=== PATIENT | male | born 1995 | race African-American/Black ===

== ENCOUNTER 2020-09-13 14:36 | Emergency (ER) | payer OTHER ==
--- NOTE | 2020-09-13 17:52 | XR ---
EXAMINATION TYPE: XR chest 2V DATE OF EXAM: 09/13/2020 COMPARISON: NONE HISTORY: Fever and cough TECHNIQUE: 2 views FINDINGS: Heart and mediastinum are normal. There is probably some mild infiltrate in the periphery o f the left midlung. Right lung is clear. There are no hilar masses. There is no pleural effusion. Bon y thorax is intact. IMPRESSION: There is probably small area of pneumonia in the lateral aspect of the left upper lobe.
--- NOTE | 2020-09-13 18:48 | ED ---
Fever HPI - General Chief Complaint: Fever Stated Complaint: Fever Time Seen by Provider: 09/13/20 18:00 Source: patient, RN notes reviewed Mode of arrival: ambulatory Limitations: no limitations - History of Present Illness Initial Comments: This is a 25-year-old male with a benign past history who states he had the onset about 3 or 4 days ago of headache which progressed into the fever that has gone progressively higher over last several days. Appendix is 103. He's had chills along with it. He had a cough slight amount of shortness of breath pe rhaps. No nausea no vomiting no loss of smell or taste. No other complaints or modifying factors at this time. He has been exposed to Amanda Du MD Complaint: fever, malaise - Related Data Home Medications Medication Instructions Recorded Confirmed Ascorbic Acid [Vitamin C] 500 mg PO DAILY 09/13/20 09/13/20 Cholecalciferol [Vitamin D3 (25 25 mcg PO DAILY 09/13/20 09/13/20 Mcg = 1000 Iu)] Levothyroxine Sodium [Synthroid] 25 mcg PO DAILY 09/13/20 09/13/20 Vitamin A 8,000 unit PO DAILY 09/13/20 09/13/20 Vitamin B Complex 1 cap PO DAILY 09/13/20 09/13/20 Zinc 50 mg PO BID 09/13/20 09/13/20 Allergies Allergy/AdvReac Type Severity Reaction Status Date / Time Penicillins Allergy Unknown Verified 09/13/20 18:48 Childhood Review of Systems ROS Statement: Those systems with pertinent positive or pertinent negative responses have been documented in the HPI. ROS Other: All systems not noted in ROS Statement are negative. Past Medical History Past Medical History: Thyroid Disorder History of Any Multi-Drug Resistant Organisms: None Reported Past Surgical History: No Surgical Hx Reported Past Psychological History: No Psychological Hx Reported Smoking Status: Never smoker Past Alcohol Use History: None Reported Past Drug Use History: None Reported General Exam - General Exam Comments Initial Comments: This is a well-developed well-nourished awake alert oriented times 3 male Limitations: no limitations General appearance: alert, in no apparent distress Head exam: Present: atraumatic, normocephalic, normal inspection Eye exam: Present: normal appearance, PERRL, EOMI. Absent: scleral icterus, conjunctival injection, periorbital swelling ENT exam: Present: normal exam, mucous membranes moist Neck exam: Present: normal inspection. Absent: tenderness, meningismus, lymphadenopathy Respiratory exam: Present: decreased breath sounds. Absent: respiratory distress, wheezes, rales, rhonchi, stridor Cardiovascular Exam: Present: regular rate, normal rhythm, normal heart sounds. Absent: systolic murmur, diastolic murmur, rubs, gallop, clicks GI/Abdominal exam: Present: soft, normal bowel sounds. Absent: distended, tenderness, guarding, rebound, rigid Extremities exam: Present: normal inspection, full ROM, normal capillary refill. Absent: tenderness, pedal edema, joint swelling, calf tenderness Back exam: Present: normal inspection Neurological exam: Present: alert, oriented X3, CN II-XII intact Psychiatric exam: Present: normal affect, normal mood Skin exam: Present: warm, dry, intact, normal color. Absent: rash Course Vital Signs 09/13/20 09/13/20 17:24 19:42 Temperature 102.7 F H 103.2 F H Pulse Rate 105 H 103 H Respiratory 22 20 Rate Blood Pressure 117/75 146/86 O2 Sat by Pulse 98 98 Oximetry Medical Decision Making - Medical Decision Making I did discuss the findings with the patient the patient's presentation is consistent with SARS Covid 19 with evidence of pneumonia. Patient did receive the antibody infusion. We did a long discussion regarding vitamin C vitamin D3 and zinc as well as hydration and quarantined. Patient be discharged. - Lab Data Result diagrams: 09/13/20 18:51 09/13/20 18:51 Lab Results 09/13/20 09/13/20 09/13/20 Range/Units 17:27 18:51 18:51 WBC 5.1 (3.8-10.6) k/uL RBC 5.82 (4.30-5.90) m/uL Hgb 16.4 (13.0-17.5) gm/dL Hct 48.7 (39.0-53.0) % MCV 83.7 (80.0-100.0) fL MCH 28.2 (25.0-35.0) pg MCHC 33.7 (31.0-37.0) g/dL RDW 12.4 (11.5-15.5) % Plt Count 161 (150-450) k/uL MPV 7.4 Neutrophils % 75 % Lymphocytes % 17 % Monocytes % 6 % Eosinophils % 1 % Basophils % 1 % Neutrophils # 3.8 (1.3-7.7) k/uL Lymphocytes # 0.9 L (1.0-4.8) k/uL Monocytes # 0.3 (0-1.0) k/uL Eosinophils # 0.0 (0-0.7) k/uL Basophils # 0.1 (0-0.2) k/uL PT 10.6 (9.0-12.0) sec INR 1.0 (<1.2) APTT 25.4 (22.0-30.0) sec D-Dimer 0.25 (<0.60) mg/L FEU Sodium (137-145) mmol/L Potassium (3.5-5.1) mmol/L Chloride (98-107) mmol/L Carbon Dioxide (22-30) mmol/L Anion Gap mmol/L BUN (9-20) mg/dL Creatinine (0.66-1.25) mg/dL Est GFR (CKD-EPI)AfAm (>60 ml/min/1.73 sqM) Est GFR (CKD-EPI)NonAf (>60 ml/min/1.73 sqM) Glucose (74-99) mg/dL Plasma Lactic Acid Anderson (0.7-2.0) mmol/L Calcium (8.4-10.2) mg/dL Magnesium (1.6-2.3) mg/dL Total Bilirubin (0.2-1.3) mg/dL AST (17-59) U/L ALT (4-49) U/L Alkaline Phosphatase (38-126) U/L Lactate Dehydrogenase (313-618) U/L C-Reactive Protein (<10.0) mg/L Total Protein (6.3-8.2) g/dL Albumin (3.5-5.0) g/dL Coronavirus (PCR) Detected A (Not Detectd) 09/13/20 09/13/20 Range/Units 18:51 18:55 WBC (3.8-10.6) k/uL RBC (4.30-5.90) m/uL Hgb (13.0-17.5) gm/dL Hct (39.0-53.0) % MCV (80.0-100.0) fL MCH (25.0-35.0) pg MCHC (31.0-37.0) g/dL RDW (11.5-15.5) % Plt Count (150-450) k/uL MPV Neutrophils % % Lymphocytes % % Monocytes % % Eosinophils % % Basophils % % Neutrophils # (1.3-7.7) k/uL Lymphocytes # (1.0-4.8) k/uL Monocytes # (0-1.0) k/uL Eosinophils # (0-0.7) k/uL Basophils # (0-0.2) k/uL PT (9.0-12.0) sec INR (<1.2) APTT (22.0-30.0) sec D-Dimer (<0.60) mg/L FEU Sodium 138 (137-145) mmol/L Potassium 5.3 H (3.5-5.1) mmol/L Chloride 103 (98-107) mmol/L Carbon Dioxide 26 (22-30) mmol/L Anion Gap 9 mmol/L BUN 13 (9-20) mg/dL Creatinine 1.28 H (0.66-1.25) mg/dL Est GFR (CKD-EPI)AfAm 89 (>60 ml/min/1.73 sqM) Est GFR (CKD-EPI)NonAf 77 (>60 ml/min/1.73 sqM) Glucose 97 (74-99) mg/dL Plasma Lactic Acid Anderson 1.2 (0.7-2.0) mmol/L Calcium 8.9 (8.4-10.2) mg/dL Magnesium 1.7 (1.6-2.3) mg/dL Total Bilirubin 0.8 (0.2-1.3) mg/dL AST 41 (17-59) U/L ALT 24 (4-49) U/L Alkaline Phosphatase 85 (38-126) U/L Lactate Dehydrogenase 846 H (313-618) U/L C-Reactive Protein 11.2 H (<10.0) mg/L Total Protein 8.0 (6.3-8.2) g/dL Albumin 4.6 (3.5-5.0) g/dL Coronavirus (PCR) (Not Detectd) - EKG Data -: EKG Interpreted by Me EKG shows normal: sinus rhythm EKG Comments: Sinus rhythm of 103. Interval 142 QRS 90 QT since QTC 320/419 right word axis no acute ST-T wave changes - Radiology Data Radiology results: report reviewed (Imaging shows evidence of a left upper lobe infiltrate), image reviewed Disposition Clinical Impression: COVID-19, Viral pneumonia, Viral syndrome, Febrile illness, acute Disposition: HOME SELF-CARE Condition: Good Instructions (If sedation given, give patient instructions): Fever in Adults (ED), Viral Pneumonia (ED), Viral Syndrome (ED) Additional Instructions: Vitamin C 1000 mg daily, vitamin D3 4-5000 international units daily, Sd sulfate daily as directed. Quarantine as directed for 10 days Is patient prescribed a controlled substance at d/c from ED?: No Referrals: None,Stated [Primary Care Provider] - 1-2 days
[2020-09-13] MEDS ORDERED: SODIUM CHLORIDE 0.9% 1,000 ML IV STA ×2 (18:50)
[2020-09-13] MEDS ORDERED: ALBUTEROL HFA INHALER INHALATION STA (18:51)
[2020-09-13 18:58] LABS: Basophils # (A) 0.1 k/uL (0-0.2); Basophils % (A) 1 %; Eosinophils % (A) 1 %; HCT 48.7 % (39.0-53.0); HGB 16.4 gm/dL (13.0-17.5); Lymphocytes # (A) 0.9 k/uL (1.0-4.8); Lymphocytes % (A) 17 %; MCH 28.2 pg (25.0-35.0); MCHC 33.7 g/dL (31.0-37.0); MCV 83.7 fL (80.0-100.0); Mean Platelet Volume 7.4; Monocytes # (A) 0.3 k/uL (0-1.0); Monocytes % (A) 6 %; Neutrophils # (A) 3.8 k/uL (1.3-7.7); Neutrophils % (A) 75 %; Platelet Count 161 k/uL (150-450); RBC 5.82 m/uL (4.30-5.90); RDW 12.4 % (11.5-15.5); WBC 5.1 k/uL (3.8-10.6)
[2020-09-13 19:09] LABS: D-Dimer 0.25 mg/L FEU (<0.60); Partial Thromboplastin Time 25.4 sec (22.0-30.0); Prothrombin Time 10.6 sec (9.0-12.0)
[2020-09-13 19:15] LABS: Albumin 4.6 g/dL (3.5-5.0); C Reactive Protein 11.2 mg/L (<10.0); Calcium 8.9 mg/dL (8.4-10.2); Magnesium 1.7 mg/dL (1.6-2.3); Total Bilirubin 0.8 mg/dL (0.2-1.3)
[2020-09-13 19:16] LABS: Potassium 5.3 mmol/L (3.5-5.1)
[2020-09-13] MEDS ORDERED: ACETAMINOPHEN TAB 500 MG TAB PO STA (19:45)
[2020-09-13] MEDS ORDERED: BAMLANIVIMAB (EUA) 700 MG, ETESEVIMAB (EUA) 1,400 MG in SODIUM CHLORIDE 0.9% 50 ML IVPB ONE (19:45)
[2020-09-13] MEDS ORDERED: IBUPROFEN 600 MG TAB PO STA (19:45)
[2020-09-13 21:57] VITALS: BP 116/80; PULSE 91; RESP 18; TEMP 99.5
[2020-09-14 04:09] LABS: Ferritin 259.3 ng/mL (22.0-322.0)
== END 2020-09-13 21:57 | disposition home or self-care (01) ==
LOC: EC 14:36
DX: U07.1 COVID-19 (principal); J12.82 Pneumonia due to coronavirus disease 2019; B34.9 Viral infection, unspecified; E07.9 Disorder of thyroid, unspecified; Z79.890 Hormone replacement therapy; Z88.0 Allergy status to penicillin
CPT/HCPCS: 36415; 71046; 80053; 82728; 83605; 83615; 83735; 84145; 85025; 85379; 85610; 85730; 86140; 87040; 87635; 93005; 94640; 96361; 96365; 99284

== ENCOUNTER → 2020-11-09 | Outpatient (CLI) | payer SELFPAY ==
[2020-11-09 16:09] LABS: HCT 49.2 % (39.6-50.0); HGB 16.2 g/dL (13.0-17.0); MCH 27.9 pg (27.0-32.0); MCHC 32.9 g/dL (32.0-37.0); MCV 84.7 fL (80.0-97.0); Mean Platelet Volume 10.2 fL (9.5-12.2); Platelet Count 249 X 10*3/uL (140-440); RBC 5.81 X 10*6/uL (4.40-5.60); RDW 12.2 % (11.5-14.5); WBC 4.98 X 10*3/uL (4.50-10.00)
[2020-11-09 20:46] LABS: Thyroid Peroxidase Antibodies 32.1 U/mL (0.0-60.0)
[2020-11-09 20:50] LABS: African American GFR (CKD) 79.8 (60.0-200.0); Albumin 4.7 g/dL (3.80-4.90); Albumin/Globulin Ratio 1.88 (1.60-3.17); Anion Gap 9.8 mmol/L (4.00-12.00); BUN/Creat Ratio 7.14 Ratio (12.00-20.00); Calcium 9.6 mg/dL (8.7-10.3); Carbon Dioxide 25.2 mmol/L (21.6-31.8); Globulin 2.5 g/dL (1.6-3.3); Non-African American GFR(CKD) 68.9 (60.0-200.0); Potassium 4.3 mmol/L (3.5-5.5); Total Bilirubin 0.5 mg/dL (0.3-1.2); Total Protein 7.2 g/dL (6.2-8.2)
[2020-11-09 20:58] LABS: Follicle Stimulating Hormone 1.9 mIU/mL; Luteinizing Hormone 6.3 mIU/mL
[2020-11-09 22:27] LABS: Prolactin 6.9 ng/mL (2.1-17.7)
[2020-11-10 16:07] LABS: ACTH 29.6 pg/mL (0.00-45.99)
== END | disposition home or self-care (01) ==
LOC: LABWHC1 09:09
PROVIDERS: ATTEND Internal Medicine Endocrinology, Diabetes & Metabolism
DX: R53.83 Other fatigue (principal)
CPT/HCPCS: 36415; 80053; 82024; 82533; 82607; 83001; 83002; 84146; 84402; 84439; 84443; 84481; 85027; 86376

== ENCOUNTER → 2021-01-12 | Outpatient (CLI) | payer SELFPAY ==
[2021-01-12 23:04] LABS: HCT 45.7 % (39.6-50.0); HGB 15.2 g/dL (13.0-17.0); MCH 28.1 pg (27.0-32.0); MCHC 33.3 g/dL (32.0-37.0); MCV 84.5 fL (80.0-97.0); Mean Platelet Volume 10.2 fL (9.5-12.2); Platelet Count 214 X 10*3/uL (140-440); RBC 5.41 X 10*6/uL (4.40-5.60); RDW 12.3 % (11.5-14.5); WBC 6.12 X 10*3/uL (4.50-10.00)
[2021-01-13 06:56] LABS: ACTH 27.2 pg/mL (0.00-45.99)
[2021-01-13 15:27] LABS: Thyroid Peroxidase Antibodies 31.8 U/mL (0.0-60.0)
[2021-01-13 15:29] LABS: Prolactin 7.7 ng/mL (2.1-17.7)
[2021-01-13 15:37] LABS: African American GFR (CKD) 67.9 (60.0-200.0); Albumin 4.7 g/dL (3.80-4.90); Albumin/Globulin Ratio 1.68 (1.60-3.17); Anion Gap 16.8 mmol/L (4.00-12.00); Calcium 9.7 mg/dL (8.7-10.3); Carbon Dioxide 22.2 mmol/L (21.6-31.8); Globulin 2.8 g/dL (1.6-3.3); Non-African American GFR(CKD) 58.6 (60.0-200.0); Potassium 4.2 mmol/L (3.5-5.5); Total Bilirubin 0.4 mg/dL (0.2-1.2); Total Protein 7.5 g/dL (6.2-8.2)
[2021-01-13 15:44] LABS: Luteinizing Hormone 3.8 mIU/mL; T4, Free (Free Thyroxine) 1.2 ng/dL (0.80-1.80)
[2021-01-13 15:45] LABS: Follicle Stimulating Hormone 2.1 mIU/mL
== END | disposition home or self-care (01) ==
LOC: LABWHC1 15:57
PROVIDERS: ATTEND Internal Medicine Endocrinology, Diabetes & Metabolism
DX: R53.83 Other fatigue (principal)
CPT/HCPCS: 36415; 80053; 82024; 82533; 82607; 83001; 83002; 84146; 84402; 84439; 84443; 84481; 85027; 86376

== ENCOUNTER → 2021-04-24 | Outpatient (CLI) | payer SELFPAY ==
[2021-04-25 03:56] LABS: African American GFR (CKD) 79.8 (60.0-200.0); Albumin 4.6 g/dL (3.8-4.9); Albumin/Globulin Ratio 1.84 (1.60-3.17); Anion Gap 13.4 mmol/L (4.00-12.00); BUN/Creat Ratio 12.07 Ratio (12.00-20.00); Blood Urea Nitrogen 16.9 mg/dL (9.0-27.0); Calcium 9.4 mg/dL (8.7-10.3); Carbon Dioxide 22.6 mmol/L (21.6-31.8); Globulin 2.5 g/dL (1.6-3.3); Non-African American GFR(CKD) 68.9 (60.0-200.0); Potassium 4.3 mmol/L (3.5-5.5); Total Bilirubin 0.2 mg/dL (0.30-1.20); Total Protein 7.1 g/dL (6.2-8.2)
== END | disposition home or self-care (01) ==
LOC: LABWHC1 16:07
PROVIDERS: ATTEND Internal Medicine Endocrinology, Diabetes & Metabolism
DX: E03.8 Other specified hypothyroidism (principal); R94.4 Abnormal results of kidney function studies
CPT/HCPCS: 36415; 80053; 84443

== ENCOUNTER → 2021-10-23 | Outpatient (CLI) | payer SELFPAY | END | disposition home or self-care (01) | LOC: LABWHC1 15:15 | PROVIDERS: ATTEND Internal Medicine Endocrinology, Diabetes & Metabolism | DX: E03.8 Other specified hypothyroidism (principal) | CPT/HCPCS: 36415; 84443 ==

== ENCOUNTER → 2022-04-30 | Outpatient (CLI) | payer OTHER | END | disposition home or self-care (01) | LOC: LABWHC1 13:56 | PROVIDERS: ATTEND Internal Medicine Endocrinology, Diabetes & Metabolism | DX: E03.8 Other specified hypothyroidism (principal) | CPT/HCPCS: 36415; 84443 ==

== ENCOUNTER → 2022-12-10 | Outpatient (CLI) | payer SELFPAY | END | disposition home or self-care (01) | LOC: LABWHC1 15:18 | PROVIDERS: ATTEND Internal Medicine Endocrinology, Diabetes & Metabolism | DX: E03.8 Other specified hypothyroidism (principal) | CPT/HCPCS: 36415; 84443 ==

== ENCOUNTER → 2023-04-24 | Outpatient (CLI) | payer SELFPAY ==
[2023-04-25 01:46] LABS: Hepatitis A Antibody IgM Nonreactive; Hepatitis B Core IgM Nonreactive; Hepatitis B Surface Antigen Nonreactive; Hepatitis C IgG Antibody Nonreactive
[2023-04-25 03:56] LABS: HIV 2 AB Non-Reactive (Non-Reactive); HIV AB P24 Non-Reactive (Non-Reactive); HIV P24 AG Non-Reactive (Non-Reactive)
== END | disposition home or self-care (01) ==
LOC: LABWHC1 15:52
PROVIDERS: ATTEND Internal Medicine
DX: Z11.3 Encounter for screening for infections with a predominantly sexual mode of transmission (principal); Y93.75 Activity, martial arts
CPT/HCPCS: 36415; 80074; 87390

== ENCOUNTER → 2023-12-25 | Outpatient (CLI) | payer SELFPAY | END | disposition home or self-care (01) | LOC: LABWHC1 14:37 | PROVIDERS: ATTEND Internal Medicine Endocrinology, Diabetes & Metabolism | DX: E03.8 Other specified hypothyroidism (principal) | CPT/HCPCS: 36415; 84443 ==

== ENCOUNTER → 2024-07-15 | Outpatient (CLI) | payer SELFPAY ==
[2024-07-16 02:25] LABS: ALT 27 U/L (10-49); AST 31 U/L (14-35); Albumin 4.7 g/dL (3.8-4.9); Albumin/Globulin Ratio 1.88 Ratio (1.60-3.17); Alkaline Phosphatase 85 U/L (41-126); BUN/Creat Ratio 11.81 Ratio (12.00-20.00); Blood Urea Nitrogen 18.9 mg/dL (9.0-27.0); Calcium 9.9 mg/dL (8.7-10.3); Carbon Dioxide 27.7 mmol/L (21.6-31.8); Chloride 104 mmol/L (96-109); Globulin 2.5 g/dL (1.6-3.3); Glucose 84 mg/dL (70-110); Potassium 4.3 mmol/L (3.5-5.5); Sodium 141 mmol/L (135-145); Total Bilirubin 0.3 mg/dL (0.3-1.2); Total Protein 7.2 g/dL (6.2-8.2)
== END | disposition home or self-care (01) ==
LOC: LABWHC1 16:19
PROVIDERS: ATTEND Internal Medicine Endocrinology, Diabetes & Metabolism
DX: E03.8 Other specified hypothyroidism (principal)
CPT/HCPCS: 36415; 80053; 84443

== ENCOUNTER → 2024-11-02 | Outpatient (CLI) | payer SELFPAY | END | disposition home or self-care (01) | LOC: LABWHC1 15:42 | PROVIDERS: ATTEND Internal Medicine Endocrinology, Diabetes & Metabolism | DX: E03.8 Other specified hypothyroidism (principal) | CPT/HCPCS: 36415; 84443 ==